=== PATIENT | female | born 1965 ===

== ENCOUNTER → 2020-08-12 11:41 | Outpatient (REF) | payer BC, SELFPAY | LOC: ANHLAB 11:41 | PROVIDERS: Visit Provider Nurse Practitioner | DX: D49.2 Neoplasm of unspecified behavior of bone, soft tissue, and skin (principal) | CPT/HCPCS: 88305 ==

== ENCOUNTER → 2020-09-01 15:07 | Outpatient (REF) | payer BC, SELFPAY | LOC: ANHLAB 15:07 | PROVIDERS: Visit Provider Nurse Practitioner | DX: D04.5 Carcinoma in situ of skin of trunk (principal); L90.5 Scar conditions and fibrosis of skin | CPT/HCPCS: 88305 ==

== ENCOUNTER → 2020-10-20 10:46 | Outpatient (REF) | payer BC, SELFPAY | LOC: ANHLAB 10:46 | PROVIDERS: Visit Provider Nurse Practitioner | DX: C44.529 Squamous cell carcinoma of skin of other part of trunk (principal) | CPT/HCPCS: 88305; 88331 ==

== ENCOUNTER → 2021-01-27 11:02 | Outpatient (REF) | payer BC, SELFPAY | LOC: ANHLAB 11:02 | PROVIDERS: Visit Provider Nurse Practitioner | DX: C44.329 Squamous cell carcinoma of skin of other parts of face (principal) | CPT/HCPCS: 88305 ==

== ENCOUNTER → 2021-02-16 07:53 | Outpatient (REF) | payer BC, SELFPAY | LOC: ANHLAB 07:53 | PROVIDERS: Visit Provider Nurse Practitioner | DX: C44.329 Squamous cell carcinoma of skin of other parts of face (principal) | CPT/HCPCS: 88305; 88331 ==

== ENCOUNTER → 2021-05-28 10:23 | Outpatient (REF) | payer BC, SELFPAY | LOC: ANHLAB 10:23 | PROVIDERS: Visit Provider Nurse Practitioner | DX: C44.329 Squamous cell carcinoma of skin of other parts of face (principal); D22.39 Melanocytic nevi of other parts of face | CPT/HCPCS: 88305; 88342 ==

== ENCOUNTER → 2021-07-30 10:37 | Outpatient (REF) | payer BC, SELFPAY | LOC: ANHLAB 10:37 | PROVIDERS: Visit Provider Nurse Practitioner | DX: D49.2 Neoplasm of unspecified behavior of bone, soft tissue, and skin (principal) | CPT/HCPCS: 88305; 88342 ==

== ENCOUNTER 2022-08-24 13:00 | Outpatient (NON) | payer OTHER, SELFPAY | END 2022-08-24 13:01 | disposition home or self-care (01) | LOC: ANHLAB 08-25 11:27 | PROVIDERS: Visit Provider Nurse Practitioner | DX: C44.41 Basal cell carcinoma of skin of scalp and neck (principal) | CPT/HCPCS: 88305 ==

== ENCOUNTER 2022-10-04 13:50 | Outpatient (RCR) | payer OTHER, SELFPAY | END 2023-01-02 23:59 | disposition home or self-care (01) | LOC: ANHLAB 13:50 | PROVIDERS: Visit Provider Nurse Practitioner | DX: C44.91 Basal cell carcinoma of skin, unspecified (principal) | CPT/HCPCS: 88305; 88331 ==

== ENCOUNTER 2023-05-02 09:00 | Outpatient (NON) | payer OTHER, SELFPAY | END 2023-05-02 09:01 | disposition home or self-care (01) | LOC: ANHLAB 05-04 11:14 | PROVIDERS: Visit Provider Nurse Practitioner | DX: C44.712 Basal cell carcinoma of skin of right lower limb, including hip (principal) | CPT/HCPCS: 88305 ==